=== PATIENT | male | born 1945 | race Caucasian/White ===

== ENCOUNTER 2020-06-10 09:01 | Emergency (ER) | payer MEDICARE, BC ==
--- NOTE | 2020-06-10 10:28 | EDM.PDOC ---
ED HPI GENERAL MEDICAL PROBLEM - General Chief Complaint: General Stated Complaint: KNEE SWOLLEN Time Seen by Provider: 06/10/20 09:15 Source of Information: Reports: Patient, Family (son) History Limitations: Reports: No Limitations - History of Present Illness INITIAL COMMENTS - FREE TEXT/NARRATIVE: 75-year-old male presents to the emergency room with complaints of increasing pain swelling tightness in his right lower leg and calf. He is status post right total knee arthroplasty 2 weeks postop. He has been doing well. His pain has been well controlled. He has had increasing pain swelling postoperatively and is a right leg with ecchymosis. He was seen by the orthopedic PA today for wound check and staple removal. He did not get an Doppler ultrasound. He feels his right leg is getting tighter. He has YVES hose but is not currently wearing them. He is on aspirin for DVT prophylaxis. Onset: Gradual Duration: Day(s):, Getting Worse Location: Reports: Lower Extremity, Right Quality: Reports: Ache, Pressure (right lower extremity) Severity: Moderate Improves with: Reports: None Worsens with: Reports: None Context: Reports: Other (s/p RTKA) Associated Symptoms: Denies: Diaphoresis, Fever/Chills, Shortness of Breath Right Knee Pain Score (Numeric/FACES): 4 - Related Data Allergies Allergy/AdvReac Type Severity Reaction Status Date / Time No Known Allergies Allergy Verified 06/10/20 09:25 Social & Family History - Tobacco Use Tobacco Use Status *Q: Never Tobacco User Second Hand Smoke Exposure: No - Caffeine Use Caffeine Use: Reports: Coffee - Recreational Drug Use Recreational Drug Use: No ED ROS GENERAL - Review of Systems Review Of Systems: See Below Constitutional: Reports: No Symptoms HEENT: Reports: No Symptoms Respiratory: Reports: No Symptoms Cardiovascular: Reports: No Symptoms Endocrine: Reports: No Symptoms GI/Abdominal: Reports: No Symptoms : Reports: No Symptoms Musculoskeletal: Reports: Leg Pain (right leg/swelling/ecchymosis), Joint Pain (s/p RTKA), Joint Swelling (s/p RTKA), Muscle Pain (right calf), Other (Right knee active motion is about 100 degrees of flexion.) Skin: Reports: Bruising (Right thigh, calf, foot), Wound (knee incision dry and intact. No signs of infection. Steri-Strips across the knee.). Denies: Erythema Neurological: Reports: No Symptoms ED EXAM, GENERAL - Physical Exam Exam: See Below Exam Limited By: No Limitations General Appearance: Alert, WD/WN, No Apparent Distress Throat/Mouth: Normal Voice, No Airway Compromise Head: Atraumatic Respiratory/Chest: No Respiratory Distress Peripheral Pulses: 1+: Dorsalis Pedis (R) Back Exam: Normal Inspection Extremities: Pedal Edema, Joint Swelling (right knee, status post total knee arthroplasty), Angelica's Sign, Limited Range of Motion (Active flexion 100 degrees), Other (It is in the right calf. Right knee incision is well approximated clean dry intact, Steri-Strips are overlying the incision. No signs of infection. Calf is tender swollen with associated ecchymosis in the right thigh extending into his calf and right foot.) Neurological: Alert, Oriented, No Motor/Sensory Deficits Psychiatric: Normal Affect, Normal Mood Skin Exam: Warm, Dry, Intact, Ecchymosis (Right leg), Wound/Incision (Benign, right knee) Lymphatic: No Adenopathy Course - Vital Signs Last Recorded V/S: Last Vital Signs Temp 97.4 F 06/10/20 09:05 Pulse 56 L 06/10/20 10:18 Resp 18 06/10/20 10:18 BP 148/79 H 06/10/20 10:18 Pulse Ox 96 06/10/20 10:18 - Radiology Interpretation Free Text/Narrative:: X-ray right knee Indication: Postop knee/swelling/calf pain Comparison: December 11, 2019 Discussion: Soft tissue swelling throughout the imaged distal thigh, knee and proximal leg. Interval total knee arthroplasty without evident hardware complication. Small to moderate joint fluid. Impression: Diffuse soft tissue swelling. Interval arthroplasty without evident hardware complication Departure - Departure Time of Disposition: 10:30 Disposition: DC/Tfer to Other 70 Condition: Good Clinical Impression: Right calf pain, Pain and swelling of right lower extremity History of total knee arthroplasty Qualifiers: Laterality: right Qualified Code(s): Z96.651 - Presence of right artificial knee joint - Discharge Information Instructions: How to Use Compression Stockings, Deep Vein Thrombosis, Venous Thromboembolism Prevention Referrals: Danii Ray PA-C [Primary Care Provider] - Forms: ED Department Discharge Care Plan Goals: 1. Doppler US Right lower extremity at [facility] in [place] today. 2. Continue with ASA daily per ortho protocol following TKA. 3. Your orthopedic will need to be notified following doppler US of Right leg. 4. TKA protocol per Orthopedics recommendations following findings from Doppler US right leg. Sepsis Event Note (ED) - Evaluation Sepsis Screening Result: No Definite Risk - Focused Exam Vital Signs: Vital Signs Temp Pulse Resp BP Pulse Ox 06/10/20 10:18 56 L 18 148/79 H 96 06/10/20 09:05 97.4 F 59 L 18 149/79 H 95 - Assessment/Plan Assessment:: Right leg/calf swelling/pain s/p Right total knee arthroplasty Plan: 1. Doppler US Right lower extremity at [facility] in [place] today. 2. Continue with ASA daily per ortho protocol following TKA. 3. Your orthopedic will need to be notified following doppler US of Right leg. 4. TKA protocol per Orthopedics recommendations following findings from Doppler US right leg.
--- NOTE | 2020-06-10 10:31 | CR ---
[id number] RAD/RAD Knee Right 1-2V EXAM: RAD Knee Right 1-2V INDICATION: POSTOP KNEE/SWELLING/CALF PAIN. COMPARISON: December 11, 2019. DISCUSSION: Soft tissue swelling throughout the imaged distal thigh, knee and proximal leg. Interval total knee arthroplasty without evident hardware complication. Small to moderate joint fluid. IMPRESSION: 1. Diffuse soft tissue swelling. 2. Interval arthroplasty without evident hardware complication. Bonifacio iRchmond MD 06/10/20 1030 Thank you for allowing us to participate in the care of your patient.
--- OUTSIDE RECORDS SUMMARY | 2020-07-13 11:15 | XMSREPORT ---
:1945 Author Organization [facility] s Address [address] [place] [address] [address] [place] [address] Care Team Providers Name Role Phone Clinic, [facility] Primary Care Provider [phone] Norris Mendoza MD Attributed Provider Reason for Visit Auth/Cert (Routine) Status Reason Specialty Diagnoses / Referred By Referred To Procedures Contact Contact Continuity of Care Diagnoses Unilateral primary osteoarthritis, right knee Philipp Andrade Procedures ARTHROPLASTY KNEE CONDYLE & PLATEAU MEDIAL & LAT COMPARTMENTS WWO MARKO Pisano MD [address] [place] [id number] Encounter Details Date Type Department Care Team Description 05/31/2020 - Hospital Encounter [facility] Lupe Philipp Arthr itis of knee, 06/01/2020 [place] NIR Pisano MD right [address] [address] [place] [address] [phone] Allergies No Known Allergiesdocumented as of this encounter (statuses as of 06/01/2020) Medications Medication Sig Dispensed Refills Start Date End Date Status brimonidine-timol Place 1 drop 0 Active ol (COMBIGAN) into both eyes 0.2-0.5 % 1 time per day ophthalmic solution latanoprost Place 1 drop 0 Activ e (XALATAN) 0.005 % into both eyes ophthalmic every night at solution bedtime aspirin 325 MG Take 1 tablet 28 tablet 0 06/01/2020 Active enteric coated (325 mg) by 1 tabletIndications mouth 2 times : Status post a day for 14 total right knee days replacement HYDROcodone-aceta Take 1 to 2 40 tablet 0 06/01/2020 Active minophen (NORCO) tablets by 5-325 mg mouth every 4 tabletIndications to 6 hours as : Status post needed for total right knee moderate pain replacement oxyCODONE Take 1 to 2 30 tablet 0 06/01/2020 Active (OXY-IR) 5 mg tablets (5-10 tablet (immediate mg) by mouth release)Indicatio Every 4 hours ns: Status post as needed for total right knee severe pain replacement aspirin 81 mg Take 1 tablet 30 tablet 11 02/16/2016 D iscontinued enteric coated (81 mg total) 1 ( Stop Taking at tabletIndications by mouth 1 D ischarge) : Bradycardia, time per day S/P MVR (mitral valve repair) diclofenac sodium Take 1 tablet 0 05/06/2020 02 Discontinued (VOLTAREN) 75 mg by mouth 2 1 (S top Taking at delayed-release times a day Idania jackson) (enteric coated) tablet LATANOPROST-TIMOL Apply 1 drop 0 Discontinued OL MALEATE OPTH to the 1 (Igor a entry affected error) eye(s) 1 time per day Tadalafil (CIALIS Take by mouth 0 05/31/19 2 Discontinued PO) 2.5 mg take 1 (Data en try one daily error) documented as of this encounter (statuses as of 06/01/2020) Active Problems Problem Noted Date Primary open angle glaucoma of both eyes 02/13/2017 Encounter for [employer] (FAA) ex amination 02/13/2017 Bursitis 06/05/2016 S/P MVR (mitral valve repair) 02/16/2016 Bradycardia 02/16/2016 S/P mitral valve repair 11/09/2013 Elevated LFTs 11/09/2013 Hypercholesteremia 11/09/2013 Pre-operative general physical examination 11/09/2013 documented as of this encounter (statuses as of 06/01/2020) Immunizations Name Administration Dates Next Due TD,not adsorbed 11/09/2006 documented as of this encounter Social History Tobacco Use Types Packs/Day Years Used Date Former Smoker Cigarettes Quit: 05/20/18 71 Smokeless Tobacco: Never Used Alcohol Use Drinks/Week oz/Week Comments Yes 24 Cans of beer 24.0 1 case of beer a week Sex Assigned at Date Recorded Not on file documented as of this encounter Last Filed Vital Signs Vital Sign Reading Time Taken Comments Blood Pressure 143/84 06/01/2020 7:11 AM RAG PRODUCTION WORKER Pulse 53 06/01/2020 7:11 AM RAG PRODUCTION WORKER Temperature 36.6 C (97.9 F) 06/01/2020 7:11 AM RAG PRODUCTION WORKER Respiratory Rate 16 06/01/2020 7:11 AM RAG PRODUCTION WORKER Oxygen Saturation 95% 06/01/2020 7:11 AM RA RAG PRODUCTION WORKER Inhaled Oxygen Concentration - - Weight 104.2 kg (229 lb 11.5 oz) 05/31/2020 6:04 AM RAG PRODUCTION WORKER Height 170.2 cm (5' 7") 05/31/2020 6:04 AM RAG PRODUCTION WORKER Body Mass Index 35.98 05/31/2020 6:04 AM RAG PRODUCTION WORKER documented in this encounter Functional Status Functional Status Response Date of Assessment Do you have difficulty with walking, balance, climbing No 02/16/2016 stairs, or had a fall in the last 3 months? documented as of this encounter Discharge Summaries Not on filedocumented in this encounter Discharge Instructions Yordan Neff RN - 1Reviewed "Orthopedic Discharge Education Guidelines" and "Pain management after You are Discharged" documents with patient. Paper copies were attached to AVS for patient to use as a reference for follow up questions. Preventing Blood Clots (Deep Vein Thrombosis) In the days and weeks after surgery, you have a higher chance of developing a deep vein thrombosis (DVT). This is a condition in which a blood clot or thrombus develops in a deep vein. They are most common in the leg. But, a DVT may develop in an arm, or another deep vein in the body. A piece of the clot, called an embolus, can separate from the vein and travel to the lungs. A blood clot in the lungsis called a pulmonary embolus (PE). This can cut off the flow of blood. It is a medical emergency and may cause . Deep vein thrombosis can occur even after you go home. Follow all instructions from your health careprovider. The following are some general guidelines about DVT prevention: Anticoagulant medication. If an anticoagulant was prescribed, make sure you follow all directionsabout taking it. Be sure you know what foods and medicines may interact. Also, ask your health care provider what to do if you forget to take a dose. Returning to activity. Follow all instructions about returning to activities. Be as active as youcan. This improves blood flow and helps prevent a clot from forming. When in bed or in a chair, continue with the ankle exercises you did in the hospital. Elevate your extremity above the level of yourheart to help prevent swelling. documented in this encounter Medications at Time of Discharge Medication Sig Dispensed Refills Start Date End Date aspirin 325 MG enteric Take 1 tablet (325 28 tablet 0 06/0106/15/2020 coated mg) by mouth 2 times tabletIndications: a day for 14 days Status post total right knee replacement HYDROcodone-acetaminophe Take 1 to 2 tablets 40 tablet 0 n (NORCO) 5-325 mg by mouth every 4 to 6 tabletIndications: hours as needed for Status post total right moderate pain knee replacement oxyCODONE (OXY-IR) 5 mg Take 1 to 2 tablets 30 tablet 0 tablet (immediate (5-10 mg) by mouth release)Indications: Every 4 hours as Status post total right needed for severe knee replacement pain latanoprost (XALATAN) Place 1 drop into 0 0.005 % ophthalmic both eyes every night solution at bedtime brimonidine-timolol Place 1 drop into 0 (COMBIGAN) 0.2-0.5 % both eyes 1 time per ophthalmic solution day documented as of this encounter Progress Notes Chloe Hussein PA - 06/01/2020 11:11 AM CST ORTHO progress note. Karime Jiang is a 75yr old male admitted on 05/31/2020 5:03 AM 1 Day Post-Op, patient of Philipp Andrade MD Status Post: Procedure(s): RIGHT TOTAL KNEE REPLACEMENT Secondary diagnoses: Patient Active Problem List Diagnosis S/P mitral valve repair Elevated LFTs Hypercholesteremia Pre-operative general physical examination S/P MVR (mitral valve repair) Bradycardia Bursitis Primary open angle glaucoma of both eyes Encounter for [employer] (FAA) examination Stevo is doing well this morning, denies pain at this time. He denies nausea today. Lab Results Component Value Date HEMOGLOBIN 13.7 06/01/2020 Current Vitals: BP 143/84 | Pulse 53 | Temp 97.9 F (36.6 C) | Resp 16 | Ht 1.702 m (5' 7") | Wt 104.2 kg (229 lb 11.5 oz) | SpO2 95% | BMI 35.98 kg/m Dist NVI. Dressing change prior to DC. Plan: Continue cares, PT. OK to DC home today. Chloe Hussein PA-C Philipp Combs MD - 05/31/2020 6:42 AM CSTH&P Updates and Indication for Care/Procedure: I have examined the patient, reviewed the H&P and no changes to the patient's condition. I have explained the risks, including risk of COVID-19 exposure, benefits, indications, and alternatives for the procedure, answered questions and obtained the appropriate consent to proceed. Stacia Lemus [facility] - 05/31/2020 6:28 AM CST 05/31/2020 6:29 AM RAG PRODUCTION WORKER Patient was seen by pharmacy for medication reconciliation. Home medications have been reconciled and updated on the home medications list to match the patient's home usage. Medications Deleted: latanoprost-timolol opthal drops-has plain latanoprost, Cialis (not using) Medications Added: latanoprost opthal drops Other information: patient's own eye drops (Combigan and latanoprost) brought to pharmacy for relabel for use in-house. Prior to Admission Medications Prescriptions Last Dose Informant Patient Reported? Taking? aspirin 81 mg enteric coated tablet 1 month ago Self No Yes Sig: Take 1 tablet (81 mg total) by mouth 1 time per day brimonidine-timolol (COMBIGAN) 0.2-0.5 % ophthalmic solution 05/31/2020 at 0400 Self Yes Yes Sig: Place 1 drop into both eyes 1 time per day diclofenac sodium (VOLTAREN) 75 mg delayed-release (enteric coated) tablet 05/28/2020 Self Yes Yes Sig: Take 1 tablet by mouth 2 times a day latanoprost (XALATAN) 0.005 % ophthalmic solution 05/30/2020 at hs Self Yes Yes Sig: Place 1 drop into both eyes every night at bedtime Facility-Administered Medications: None Stacia Ochoa RPh PRODUCTION WORKER documented in this encounter Procedure Notes Emma Clark MD - 05/31/2020 6:54 AM CSTAssociated Order(s): NERVE BLOCK Procedure Documentation BERENICE: [id number] PATIENT NAME: Karime Jiang NERVE BLOCK Date/Time: 05/31/2020 6:54 AM Performed by: Emma Clark MD Authorized by: Emma Clark MD Comments: NERVE BLOCK Date Performed: 05/31/2020 Performed by: Emma Clark Start Time: 643 End Time: 651 Procedure: Adductor Canal Block Type: Single Shot Laterality: Right Indication: Post-Op Pain Relief per surgeon request Risks and Benefits: Discussed the risks (including but not limited to, bleeding, infection, nerve damage, and intravascular injections) benefits and alternatives to the procedure Consent: Expressed understanding of the procedure, risks, benefits and alternatives and wished to proceed. Anesthesia Time Out: There was a time out called immediately prior to the procedure to confirm the correct patient, procedure and laterality. All necessary equipment was available and functioning. Monitoring: Continuous monitory of ECG, Pulse Ox, Heart Rate and Blood Pressure throughout procedure,. Positioning: Supine Sedation and Analgesia: 1 mg Versed and 50 mcg Fentanyl Pannus Retraction: Not Needed Draping: Draping not needed Disinfectant Used: Skin was sterily prepped with Chlorhexadine and allowed to dry. Skin Infiltration: Lidocaine 2% Equipment used Ultrasound Regional Needle: Stimuplex Needle Gauge: 22g Needle Length: 3 1/8" Technique: Anatomical Landmarks identified, Tissues were visualized with ultrasound, Local given in5ml increments with negative aspiration in-between. and Strict sterile technique was maintained throughout. Motor Response: none Lowest Stimulator Current: none mA Catheter: None Dressing: No Dressing Events: None Vital Signs: Please refer to Pre-Procedure Record Comments: Ultrasound Image recorded and Patient tolerated procedure well Medications: Base Medication: Ropivicaine 0.5% 27 ml Additives: none documented in this encounter Miscellaneous Notes Clinical Team - Elisabeth Benton RN - 06/01/2020 12:38 PM CSTExplain AVS instructions,orthopedic discharge education guideline form, safety, precautions, pain management, s/s to notify provider of, and much more. At this time, all other questions reviewed. Pt discharged to home accompanied by friend, [facility] with all belongings. ccupational Therapy - Karime Marks OTR/Mark - 06/01/2020 9:54 AM CST Occupational Therapy Orthopedic Evaluation Date: 06/01/19 Start Time: 929 Total for time-based codes: 23 minutes Total treatment time: 23 minutes Admitting Diagnosis: R TKA PMH: Past Medical History: Diagnosis Date Ankle fracture, left Bradycardia Bursitis Elevated LFTs Erectile dysfunction Fatigue Glaucoma History of mitral valve repair Hyperlipidemia Left ankle pain Pes anserine bursitis Pes anserinus tendonitis Right knee pain Upper respiratory infection Urinary frequency Vitamin D deficiency Precautions: TKA Weight bearing status: WBAT SOCIAL/HOME ENVIRONMENT House: house Lives Alone: No, spouse Bed/Bath on Main Floor: No: Number of stairs: 14-15 Bath Setup: Walk-In Shower with door Prior Level of Functioning: Independent Adaptive Equipment Available: shower chair, health psychologist and front-wheeled walker ADLs Dressing: Pt was able to kristine pants w/ SBA, education provided on LE dressing technique (surgical leg in first/out last) and pt able to utilize. Pt declines education on donning/doffing socks as he reports will be able to assist. Homemaking: Kitchen safety reviewed and patient verbalizes understanding. Home safety reviewed and patient verbalizes understanding. TRANSFERS Chair: standby assistance with walker Toilet: standby assistance with walker, standard toilet w/ grab bars to simulate home setup. Car: standby assistance with walker. Simulated higher vehicle as pt reports a friend is picking him up in a pickup with a running board. Tub/Shower: standby assistance with walker and shower chair. Total Knee precautions were reviewed with the patient. Patient demonstrates understanding of precautions. UE FUNCTION: WFL COGNITION: Alert and oriented to self Pain Level at Rest: 0/10 Pain Level with Activity: 2/10 PATIENT/FAMILY EDUCATION: TKA precautions Transfers Self Half-Way safety Kitchen safety Role of OT Family present during evaluation: none Adaptive Equipment Recommended: No adaptive equipment needed Plan to obtain adaptive equipment: Patient indicates all needed adaptive equipment obtained prior to hospitalization. Assessment: Patient at SBA/Independent level for ADLs/transfers. No further skilled OT needed. Plan: Discharge OT/No OT services needed at this time. Goals by discharge: Patient will be SBA with bed, chair, toilet, car transfers with adaptive equipment as needed. Patient will be SBA with tub/shower transfer with adaptive equipment as needed. Patient will be SBA with self care skills with adaptive equipment as needed. Patient will be SBA for kitchen/home safety. (all goals met during initial session) Certification dates: 06/01/2020 Occupational Therapy Orthopedic Progress Note Treatment Today's Treatment Evaluation Self care/home management: 20 minutes Treatment provided: Pt completing transfers/ADLs as noted above. Pt educated on TKA precautions, modified ADLs, home/kitchen safety, and AE as needed. Pt moving well and has assistance at home from spouse if needed. From an OT standpoint, pt will be safe to discharge home w/ spouse assistance as needed. Gait belt donned for all OOB activity and pt left sitting in chair with call light and tray table within reach. Evaluation Complexity PMH/Comorbidities that affect Occupational Performance: see PMH above Occupational Profile/Medical and Therapy History: LOW - Brief history relating to presenting problem Patient Assessment: LOW - 1-3 performance deficits relating to physical, cognitive, psychosocial limitations/restrictions Clinical Decision Making: LOW - Low complexity, limited amount of treatment options, no assessment modification, no comorbidities Evaluation Complexity: Low Therapist pager #: [phone] I certify the need for these services furnished under this plan of treatment while under my care. are Planning - Elisabeth Benton RN - 06/01/2020 9:47 AM RAG PRODUCTION WORKER Problem: ACUTE PAIN Goal: CLIENT SATISFACTION: PAIN MANAGEMENT Description: DEFINITION: Extent of positive perception of nursing care to relieve pain. 1=Not at all satisfied, 2=Somewhat satisfied, 3=Moderately satisfied, 4=Very satisfied, 5=Completely satisfied. Outcome: Outcome acceptable for discharge Flowsheets (Taken 06/01/2020941) Plan of care reviewed with: Patient Patient specific goal for the day: Pt will have tolerable pain level at 5/10 or less on a scale of 0-10 scale. Patient specific goal for the stay: Maintain a tolerable pain level at or below 5/10 on 0-10 scale w/ oral pain meds Achieve goal for stay: By discharge Patient Progress: Pt rated pain 3-4/10 during shift using FWW, up with 1. Passed therapy discharge goals. Goal: CLIENT SATISFACTION: PAIN MANAGEMENT Description: DEFINITION: Extent of positive perception of nursing care to relieve pain. 1=Not at all satisfied, 2=Somewhat satisfied, 3=Moderately satisfied, 4=Very satisfied, 5=Completely satisfied. Outcome: Outcome acceptable for discharge Flowsheets (Taken 06/01/2020941) Plan of care reviewed with: Patient Patient specific goal for the day: Pt will have tolerable pain level at 5/10 or less on a scale of 0-10 scale. Patient specific goal for the stay: Maintain a tolerable pain level at or below 5/10 on 0-10 scale w/ oral pain meds Achieve goal for stay: By discharge Patient Progress: Pt rated pain 3-4/10 during shift using FWW, up with 1. Passed therapy discharge goals. Problem: IMPAIRED GAS EXCHANGE Goal: RESPIRATORY STATUS Description: DEFINITION: Movement of air in and out of the lungs and exchange of carbon dioxide and oxygen at the alveolar level. 1=Severe deviation from normal range, 2=Substantial deviation from normal range, 3=Moderate deviation from normal range, 4=Mild deviation from normal range, 5=No deviationfrom normal range. Outcome: Outcome acceptable for discharge Flowsheets (Taken 06/01/2020941) Patient specific goal for the day: to maintain O2 sat greater than 90% with the use of oxygen as needed Patient specific goal for the stay: To be weaned off on oxygen, go home on RA and free from pneumonia Achieve goal for stay: By discharge Patient Progress: Pt is on RA, VS WNL. Lung sounds clear bilaterlly. No SOB noted. Problem: IMPAIRED PHYSICAL MOBILITY Goal: MOBILITY Description: DEFINITION: Ability to move purposefully in own environment independently with or without assistive device. 1=Severely compromised / Total assistance: Performs less than 25% of activity; 2=Substantially compromised / Maximal assistance: Performs 25-49% of activity; 3=Moderately compromised / Moderate assistance: Performs 50-74% of activity; 4=Mildly compromised / Modified independence: Needs assistive device, supervision, minimal contact,or safety is a concern; 5=Not compromised / Complete independence. Outcome: Outcome acceptable for discharge Flowsheets (Taken 06/01/2020 0942) Patient specific goal for the day: Pt will work with PT/OT throuhgout the shift. Patient specific goal for the stay: Meet criteria for safe discharge Achieve goal for stay: By discharge Patient Progress: Pt passed PT/OT and meet criteria for discharge. ase Stephenie - Nette Otero LSW - 06/01/2020 9:33 AM CSTCASE MANAGEMENT / SOCIAL SERVICE FINAL TRANSITION PLAN TRANSITION DATE: 06/01/2020 TRANSITION TIME: Once cleared by therapies and medically able INTENDED PAYER SOURCE FOR AGENCY: Medicare TRANSITION DESTINATION: Home with family support and OPPT at [place], [place] DOES ACCEPTING FACILITY REQUIRE COVID TESTING BEFORE DISCHARGE: N/A TRANSITION TRANSPORTATION: Family Car TRANSPORTATION PAYMENT: Not applicable TRANSITION CHOICES OFFERED: Home Health: Home Safety Evaluation, Occupational Therapy and Physical Therapy Home: Family/Friend Support Outpatient Therapy: Occupational Therapy and Physical Therapy Swing Bed Transitional Care All discharge options were discussed. DOES THE PATIENT HAVE A PRIMARY CARE PHYSICIAN? Yes [facility], RESOURCE PATIENT / SUBSTITUTE DECISION MAKER GOAL UPON TRANSITION: First Choice: Home: Family/Friend Support Outpatient Therapy: Physical Therapy PATIENT CHOICE EDUCATION: Not applicable MEDICARE 3 IP MIDNIGHT CRITERIA MET: N/A RESOURCE(S) PROVIDED: nothing needed at this time DOES PATIENT HAVE CLOTHING TO WEAR AT DISCHARGE? Yes ANTICIPATED MODE OF TRANSPORT TO AND FROM FOLLOW UP APPOINTMENTS: Family Car VERIFIED CORRECT PHARMACY IS ENTERED FOR DISCHARGE: Patient agreeable with Med to Bed METHOD OF PRESCRIBING MEDICATIONS: Medications to be E-prescribed to above pharmacy TRANSITION ROUNDING COMPLETED WITH THE FOLLOWING: Patient / family Painter Touch Up plaster helper Discussed in person COMMENTS / PATIENT AND FAMILY RESPONSE TO PLAN: Chart review was completed. Airline Reservation Agent met with patient at bedside; introduced self, case management role and discharge planning. Patient expressed that he anticipates discharge on this date and that he is comfortable returning home with family support. Patient explained that he plans to participate in outpatient therapy at [facility] in [place], [place]. Patient expressed that his will be his main source of assistance and transportation upon discharge. Airline Reservation Agent was told that she did not need to contact family at this time. Patient did not have any other questions or concerns at this time. Airline Reservation Agent will continue to follow to ensure a safe discharge plan and assess any needs that may arise. SPECIAL TRANSITION DAY INSTRUCTIONS TO NURSE / MD: CURRENT READMISSION RISK SCORE / HANDOFF: Predictive Risk Score Risk of Unplanned Readmission: 5 Handoff given: N/A SIGNED: CANDIDO Sethi Case Management P: [phone] F: [phone] signed by Nette Otero LSW at 06/01/2020 10:04 AM CSTPhysical Therapy - Prasad Díaz, PT - 06/01/2020 9:32 AM RAG PRODUCTION WORKER Physical Therapy Orthopedic TKA Discharge Note Date: 06/01/2020 Subjective: Alert and Oriented. Patient ready to discharge home with his . Objective: Gait belt donned for all out of bed activities. Lab Results Component Value Date HEMOGLOBIN 13.7 06/01/2020 Supine to/from sit: Independent Sit to/from stand: Independent from bed and recliner. Sitting Balance: Good Standing Balance: Good with FWW Gait: Ambulates 350 ft with FWW and stand by assist to independent with slow, steady, emerging reciprocating gait pattern. Stairs: Able to ascend/descend 5 steps with FWW/rail and contact assist with step to pattern. ROM: AAROM right knee - 4 - 104 degrees. Patient encouraged not to be overly aggressive with ROM and run risk of opening incision site. Exercises: Completes 10 reps of exercise on surgical LE which includes quad sets and hamstring sets with good quality strength, and supine heel slides, SAQ, and SLR with sheet to no assistance along with seated LAQ, and knee extension and flexion stretching. Pain: (0-10 scale) At rest: 2 With Activity: 2 Education: Completed for precautions, use of equipment, home exercise activity and mobility progression. Patient verbalizes understanding of precautions. Written home exercise program provided. Patient and family verbalizes understanding of home exercise program. Equipment: Patient indicates all needed assistive devices obtained prior to hospitalization or will obtain on their own. Assessment: Patient demonstrates safety with mobility, applying precautions as indicated. Goals: All goals achieved as identified in initial evaluation. Plan: Patient will be discharged to home with spouse. Follow-up Physical Therapy Services: [facility] PT Time Treatment Occurred: 850 Gait trainin minutes Therapeutic Exercise: 25 minutes Therapeutic Activity: 0 minutes TOTAL TIMED CODES: 40 minutes TREATMENT TOTAL TIME: 40 minutes are Planning - Merlyn Johnson RN - 06/01/2020 6:53 AM RAG PRODUCTION WORKER Problem: ACUTE PAIN Goal: CLIENT SATISFACTION: PAIN MANAGEMENT Description: DEFINITION: Extent of positive perception of nursing care to relieve pain. 1=Not at all satisfied, 2=Somewhat satisfied, 3=Moderately satisfied, 4=Very satisfied, 5=Completely satisfied. Flowsheets (Taken 06/01/2020 0652) Patient specific goal for the day: Pt will have tolerable pain level at 5/10 or less on a scale of 0-10 scale. Patient Progress: Shift: 2300-present Patients pain rating throughout shift: 2/10. Pain has been controlled with scheduled pain medication no PRN pain medication was given. Ice packs changed frequently. VSS, afebrile. Right knee dressing intact; serosanguinous stain marked with pen; has not expanded. CMS intact. linical Team - Shara Pagan RN - 05/31/2020 8:00 PM CSTPt is AOx4. VSS and on RA with O2 >90%. Pt denies any SOB or Nausea. Pain is controlled with sched ule pain medications (see MAR). Ice is applied the R) knee. Pt is voiding (see I&O). Pt is tolerating a regular diet well. Pt is up with 1 assist, gait belt and FWW. Will continue to monitor and assess. are Planning - Shara Pagan RN - 05/31/2020 6:20 PM RAG PRODUCTION WORKER Problem: ACUTE PAIN Goal: CLIENT SATISFACTION: PAIN MANAGEMENT Description: DEFINITION: Extent of positive perception of nursing care to relieve pain. 1=Not at all satisfied, 2=Somewhat satisfied, 3=Moderately satisfied, 4=Very satisfied, 5=Completely satisfied. Outcome: NOC Rating 3 Flowsheets (Taken 05/31/20201811) Initial Score: 3 Target Score: 4 Plan of care reviewed with: Patient Patient specific goal for the day: Pt will have tolerable pain level at 5/10 or less on a scale of 0-10 scale. Achieve goal for stay: By discharge Patient Progress: Pt has c/o minimal pain throughout the shift. Pt given schedule pain medications. Ice is applied to the R) knee and positioned for comfort. Dressing has scant drainage noted. Pt is satisfied with pain control. Pt was instructed to let staff know when pain increases or is not tolerable. Problem: IMPAIRED PHYSICAL MOBILITY Goal: MOBILITY Description: DEFINITION: Ability to move purposefully in own environment independently with or without assistive device. 1=Severely compromised / Total assistance: Performs less than 25% of activity; 2=Substantially compromised / Maximal assistance: Performs 25-49% of activity; 3=Moderately compromised / Moderate assistance: Performs 50-74% of activity; 4=Mildly compromised / Modified independence: Needs assistive device, supervision, minimal contact,or safety is a concern; 5=Not compromised / Complete independence. Outcome: NOC Rating 3 Flowsheets (Taken 05/31/20201811) Initial Score: 2 Target Score: 4 Plan of care reviewed with: Patient Patient specific goal for the day: Pt will ambulate with staff throuhgout the shift. Achieve goal for stay: By discharge Patient Progress: Pt is up with 1 assist, gait belt and FWW. Pt denies any new numbness or tingling to all extremities. Movement is tolerated well. Pt will have PT/OT tomorrow in order to work toward d/c home. PRODUCTION WORKER Clinical Team - Shara Pagan RN - 05/31/2020 4:00 PM CSTPt is AOx4. VSS and on RA with a O2 >90%. Pt denies any SOB or Nausea. Pain is controled with PRNand schedule PO pain medications (see MAR). Ice is applied to the R) knee. Pt is voiding (see I&O) and has fluids at 75 mL/hr. Pt is tolerating diet well. Pt is up with 1 assist, gait belt and FWW. Will continue to monitor and assess. ase Mgmt - BrandenNette DINORA UribeW - 05/31/2020 3:09 PM CSTCASE MANAGEMENT / SOCIAL SERVICE TRANSITION PLAN - INITIAL ASSESSMENT TRANSITION PLAN: Home with family support and OPPT at [facility] in [place], [place] Awaiting Patient/Family Decision Regarding Plan of Care Transition Options Being Explored Will Continue to Follow for Support and Progression Towards Final Transition Plan BARRIERS TO TRANSITION: Awaiting Therapy Recommendations Discharge Needs to be Determined Medical barriers:surgery today and post op cares COMMENTS / PATIENT AND FAMILY RESPONSE TO PLAN: Chart review was completed. Airline Reservation Agent met with patient at bedside; introduced self, case management role and discharge planning. Patient explained that he lives at home with his in [place], [place]. 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 Patient expressed that his is also independent, able to drive and retired. Airline Reservation Agent discussed all discharge options per recommendations, possible insurance coverage and other criteria. Patient was understandable to this. Patient expressed that he is planning on discharging home with family support and outpatient therapy at [facility] in [place], [place]. Airline Reservation Agent was told that she did not need to contact family at this time. Patient explained that his will be his main source of assistance and transportation upon discharge. Patient did not have any other questions or concerns at this time. Airline Reservation Agent will continue to follow to ensure a safe discharge plan and assess any needs that may arise. ADMISSION DX: Arthritis of knee, right [M17.11] PATIENT STATUS: Ambulatory Surgery RELEASE OF INFORMATION: Yes -- verbal for: discharge planning SOURCES OF INFORMATION (See demographics for contact information): Medical Doctor Medical Record Nurse: Bedside Patient CURRENT LIVING SITUATION / LEVEL OF ASSISTANCE: Lives with spouse Home is not handicap accessible: 2 stairs Independent Bath / bedroom on main floor COMMUNITY SERVICES: None HEALTHCARE DIRECTIVE: No POWER OF INTERNET MANAGER: None FINANCIAL CONCERNS: No Concerns PRIMARY CARE PHYSICIAN: Yes : No IS PATIENT'S ADMISSION ASSOCIATED WITH TIA, ISCHEMIC, OR HEMORRHAGIC STROKE?: No LANGUAGE / COMMUNICATION BARRIERS: No PATIENT / SUBSTITUTE DECISION MAKER GOAL UPON TRANSITION: First Choice: Home: Family/Friend Support Outpatient Therapy: Physical Therapy ANTICIPATED NEEDS, TRANSITION CHOICES OFFERED: Home Health: Home Safety Evaluation, Occupational Therapy and Physical Therapy Home: Family/Friend Support Outpatient Therapy: Occupational Therapy and Physical Therapy Swing Bed Transitional Care All discharge options were discussed. RESOURCE(S) PROVIDED: nothing needed at this time DOES PATIENT HAVE CLOTHING TO WEAR AT DISCHARGE? Yes ANTICIPATED MODE OF TRANSPORT UPON DISCHARGE: Family Car VERIFIED CORRECT PHARMACY IS ENTERED FOR DISCHARGE: Patient agreeable with Med to Bed CURRENT READMISSION RISK SCORE Predictive Risk Score Risk of Unplanned Readmission: 5.2 Please refer to readmission risk assessment flowsheet for further details. SIGNED: CANDIDO Sethi Case Management P: [phone] F: [phone] signed by Nette Otero LSW at 05/31/2020 3:11 PM CSTPhysical Therapy - Prasad Díaz, PT - 05/31/2020 3:09 PM RAG PRODUCTION WORKER Physical Therapy OrthopedicTKA Evaluation Date: 05/31/2020 Assessment/Recommendations: Patient tolerates PT evaluation, exercise and walking well. Patient requires assist x 1 with bed mobility/transfers and ambulates 200 feet with FWW and contact assist x 1. Look to discharge home tomorrow with his if medically stable and therapy goals met. OPPT at [facility]. Referring Physician: Philipp Andrade MD Diagnosis/Surgical Procedure and Date: Right total knee arthroplasty Significant PMH: Past Medical History: Diagnosis Date Ankle fracture, left Bradycardia Bursitis Elevated LFTs Erectile dysfunction Fatigue Glaucoma History of mitral valve repair Hyperlipidemia Left ankle pain Pes anserine bursitis Pes anserinus tendonitis Right knee pain Upper respiratory infection Urinary frequency Vitamin D deficiency Physician Orders: Evaluate and treat: yes Gait and exercise: yes Weight Bearing Status: As tolerated. Precautions: total knee arthroplasty Lab Results Component Value Date HEMOGLOBIN 15.7 05/31/2020 No kneeling/twisting on surgical knee/leg Status Prior to Hospitalization/Surgical Procedure: Current Living Environment: Lives in [place] 4 story home with spouse. Stairs to Enter Home: 2 Railin Stairs to Bedroom or Bathroom: - Railing: - Ambulation Status: Independent Equipment Owned: FWW Patient/Family Concerns: None Patient Goals: Go home with spouse. Other: Patient is a [employer]. Current Status: Cognition: Alert and Oriented Observation: Gait belt donned for all out of bed activities. ROM: AAROM right knee - 5 - 95 degrees Transfers: Supine to/from Sit: Goes supine to sit with minimal assist. Sit to/from Stand: Goes sit to stand from raised bed with contact assist. Balance: Sitting: Good Standing: Fair with FWW and contact assist. Gait: Ambulates 200 feet with FWW and contact assist x 1 with slow, steady, semi-reciprocating gaitpattern and recliner follow. At completion of treatment, patient to sit up in recliner and cold pack applied to right knee. Stairs: N/t Exercises: Completes 10 reps of exercise on surgical LE which includes quad sets and hamstring sets with fair quality strength, and supine heel slides, SAQ, and SLR with minimal assistance. Pain Level: (0-10 scale) At rest: 2 With Activity: 2 Comments: Patient/Family Education: Reviewed precautions, role of the physical therapist, and discussed anticipated outcome goals. Other: Family Present during Evaluation: Treatment: Time Treatment Occurred: 1434 Evaluation: X Gait: 0 minutes Therapeutic Exercise: 20 minutes Therapeutic Activity: 0 minutes TOTAL TIMED CODES: 20 minutes TREATMENT TOTAL TIME: 35 minutes Assessment: Patient presents with impaired functional mobility post surgical procedure and will benefit with continued PT. Patient has potential to return home within 1 - 2 days. Plan: Follow daily for gait training, therapeutic exercise, therapeutic activity, and education. Goals: By hospital discharge or within 1 - 2 days/hospital discharge. Patient/family involved in developing/progressing goals and treatment plan. Supine to sit with no assist. Sit to stand with no assist. Ambulate 250 feet on level surfaces with no assist and appropriate assistive device. Up/Down 2 steps with contact assist and appropriate assistive device. Follow precautions during functional mobility. Discharge knee ROM of 10 to 80 degrees. Independent or able to instruct caregiver in home exercise program. Appropriate assistive device available for ambulation. Certification dates: 05/31/2020 to: 06/07/2020 CERTIFICATION I certify that the services as described in the above note are furnished while the patient is under my care; a plan for furnishing these services has been established and will be periodically reviewed;the services are required for the patient; and the services are subject to established guidelines. Referring Provider: Dr Nelsen are Planning - Elisabeth Benton RN - 05/31/2020 10:29 AM RAG PRODUCTION WORKER Problem: ACUTE PAIN Goal: CLIENT SATISFACTION: PAIN MANAGEMENT Description: DEFINITION: Extent of positive perception of nursing care to relieve pain. 1=Not at all satisfied, 2=Somewhat satisfied, 3=Moderately satisfied, 4=Very satisfied, 5=Completely satisfied. Outcome: NOC Rating 2 Flowsheets (Taken 05/31/2020 1026) Initial Score: 2 Target Score: 4 Plan of care reviewed with: Patient Patient specific goal for the day: Maintain a tolerable pain level at or below 5/10 on 0-10 scale. Patient specific goal for the stay: Maintain a tolerable pain level at or below 5/10 on 0-10 scale w/ oral pain meds Achieve goal for stay: By discharge Patient Progress: Pt just arrived from PACU s/p, denied pain at this moment d/t spinal block still in effect. Pain medication available as needed, see MAR. Ice applied to Rt knee and positioned for comfort. Incision to Rt knee dressed, sabrina. Dressing CDI. Pt voiced satisfied with pain management. Pt was instructed to inform nursing staff if further pain management needed xiao. Problem: IMPAIRED GAS EXCHANGE Goal: RESPIRATORY STATUS Description: DEFINITION: Movement of air in and out of the lungs and exchange of carbon dioxide and oxygen at the alveolar level. 1=Severe deviation from normal range, 2=Substantial deviation from normal range, 3=Moderate deviation from normal range, 4=Mild deviation from normal range, 5=No deviationfrom normal range. Outcome: NOC Rating 3 Flowsheets (Taken 05/31/2020 1026) Initial Score: 3 Target Score: 4 Plan of care reviewed with: Patient Patient specific goal for the day: to maintain O2 sat greater than 90% with the use of oxygen as needed Patient specific goal for the stay: To be weaned off on oxygen, go home on RA and free from pneumonia Achieve goal for stay: By discharge Patient Progress: Currently required the use of 2 L of Oxygen NC to keep O2 sat above 90%. Turn cough, deep breath. No SOB noted. Hourly CARE roundings. Will continue to monitor. Problem: IMPAIRED PHYSICAL MOBILITY Goal: MOBILITY Description: DEFINITION: Ability to move purposefully in own environment independently with or without assistive device. 1=Severely compromised / Total assistance: Performs less than 25% of activity; 2=Substantially compromised / Maximal assistance: Performs 25-49% of activity; 3=Moderately compromised / Moderate assistance: Performs 50-74% of activity; 4=Mildly compromised / Modified independence: Needs assistive device, supervision, minimal contact,or safety is a concern; 5=Not compromised / Complete independence. Outcome: NOC Rating 2 Flowsheets (Taken 05/31/2020 1029) Initial Score: 2 Target Score: 4 Plan of care reviewed with: Patient Patient specific goal for the day: Dangle, stand, and ambulate in room with PT/unit staff within 4 hours of arrival to the unit Patient specific goal for the stay: Meet criteria for safe discharge Achieve goal for stay: By discharge Patient Progress: Pt remained in bed for rest d/t numbness/tingling on both legs as the spinal blockis still in effect, PT/nursing staff will attempt dangle and ambulate pt later when legs have feeling back. Neurovascular in tact. No calf tenderness noted in both lower extremities. Alert and orientedx4. Will continue participate in PT/OT tomorrow and work toward safe d/c home XIAO. linical Team - Elisabeth Benton RN - 05/31/2020 10:00 AM CSTReceived report in pt room from PACU nurse Savanah WARREN @ 1000. Pt has a RTKA with Dr. Andrade, [facility]. Upon arrival, Pt is A&O x4, VS stable, see Graphics. Denies pain, nausea, and SOB at this time, able to wiggle legs and toes but still feels numbness/tingling. IVF infusing as ordered, tubing changed, dressing CDI. Pt oriented to room, call light, IS, diet, activity, DVT prevention, and pain control. Encouraged pt to use call light with any needs. Patient resting comfortably in bed. Upon Transfer to , skin assessment completed with Savanah WARREN Behind ears: nild redness behind anjelica ears d/t mask wearing and Oxygen tubing Elbows: WNL Coccyx: WNL Any other areas of notable concern: N/A WOCN consulted: N/A Plan/Intervention manage moisture, assist pt to dangle and ambulate later when able, PT/OT following perative Note - Philipp Andrade MD - 05/31/2020 8:22 AM RAG PRODUCTION WORKER PREOPERATIVE DIAGNOSIS: Right knee degenerative arthritis POSTOPERATIVE DIAGNOSIS: Right knee degenerative arthritis PROCEDURE: Right total knee arthroplasty INDICATION: This 75 year old male has advanced right knee arthritis and was taken to the OR for knee replacement surgery. DESCRIPTION: The patient was taken to the operating room and after an adductor canal block and spinal anesthesia were obtained, placed supine on the operating table. The right lower extremity was then prepped and draped in a sterile surgical fashion. A time out was taken and the proper extremity was identified. The leg was then exsanguinated and the tourniquet inflated to 250 mm Hg. An anterior longitudinal incision was performed and dissection was carried down to the extensor mechanism where amedian parapatellar arthrotomy was performed. The patella was everted and the knee was placed in a flexed position. Evaluation of the joint revealed significant wear in the medial compartment. A drill hole was created in the distal femur. The femoral alignment joshua was place into the femoral canal and used to position the distal femoral cutting block. The block was pinned in place and the joshua wasremoved. The distal femoral cut was then performed. The distal femur was then sized to a 8 and thesize 8 cutting block was pinned to the distal femur. The anterior and posterior cuts were then perfo rmed. Next, the cruciate ligaments and menisci were excised from the knee and the proximal tibia was exposed. The tibial extramedullary alignment device was placed on the tibia. This was used to position the proximal tibial cutting block. The block was pinned in place and the proximal tibial cut was performed. Flexion and extension gaps were then evaluated using spacer blocks. These were found to be equal with good stability and alignment. The size 8 femoral cutting block was placed back on the femur and the remaining femoral cuts were performed. A size 8 femoral trial was impacted on the bone and this had a good fit. The size F tibial trial was placed on the tibial bony surface and this had a good fit. A 10 mm polyethylene trial was then placed into the knee and range of motion and stability were evaluated and found to be appropriate. The patella was then everted and the articular surface was resected using a saw. The patella was sized to a 35 and lug holes were drilled for that implant. A trial patellar button was then placed on the patella and patellar tracking was evaluated during flexion and extension of the knee. The patella tracked centrally. The trial components were then removed from the knee. The tibial base plate was pinned in position on the tibia and the keel punch was performed. Cement was mixed at the back table while the bony surfaces were washed and dried. The final size F tibia and size 8 femur were cemented and impacted. Excess cement was removed. The 10 mm polyethylene trial was placed into the knee and it was held in full extension while the patellar button was cemented and held in place with a clamp. Once the cement had hardened the trial polyethylene was removed and replaced with the final 10 mm polyethylene component. The knee was then reduced and irrigated with a large amount of sterile saline. The extensor mechanism was closed with interrupted #1 Vicryl suture. The skin was closed with 2.0 Vicryl suture and kaela. Sterile dressings were then applied. The patient was taken to the recovery room in stable condition. The skilled assistance of the KRISTOPHER Hussein was necessary for the successful completion of this case. He/She was essential for proper positioning, manipulation of instruments, proper exposure, manipulation of tissue and wound closure. Due to schedule rotations, a qualified resident was not available to assist me in this case. SURGEON: Raul Andrade MD ASST: Chloe Hussein, CARLO BLOOD LOSS: 100 ml DRAINS: None are Planning - Mari Zhao RN - 05/31/2020 6:24 AM CSTPt in preop; no questions/concerns at this time. Will continue to monitor. documented in this encounter Plan of Treatment Date Type Specialty Care Team Description 06/09/2020 Office Visit Chloe Luna PA [address] [place] [address] [phone] 07/04/2020 Office Visit Philipp Mehta MD [address] [place] [address] [phone] Name Type Priority Associated Diagnoses Date/Ti me TISSUE EXAM PATH Routine Arthritis of knee, right 04/2021 7:30 AM RAG PRODUCTION WORKER Name Type Priority Associated Diagnoses Order S chedule TISSUE EXAM PATH Routine Arthritis of knee, right Rel ease Upon Ordering for 1 Occurrences sta rting 05/31/2020 documented as of this encounter Implants Implanted Type Area Furniture Painter Device Shelf Model / Identifier Expiration Serial / Lot Date Cmnt Bone Cmnt-R 1x40 N [id number] - [id number] Tissue Right: FAVIAN 05/19/2024 [id number] / Implanted: Qty: 1 on 05/31/2020 by Philipp Lyon MD at [facility] Synthetic KNEE / [id number] Knee Psn Asf Mc [id number] E N [id number] Ea1 - [id number] Total Jt Knee Right: FAVIAN 07/17/2024 [id number] / Implanted: Qty: 1 on 05/31/2020 by Philipp Lyon MD at [facility] KNEE / [id number] Knee Tib Stem Psn 5d Rt Szf N [id number] Ea1 - [id number] Total Jt Knee Right: FAVIAN 01/29/2030 [id number] / Implanted: Qty: 1 on 05/31/2020 by Philipp Lyon MD at [facility] KNEE / [id number] Knee Psn Ptla All Pe Ve 35mm N [id number] Ea1 - [id number] Total Jt Knee Right: FAVIAN 01/18/2025 [id number] / Implanted: Qty: 1 on 05/31/2020 by Philipp Lyon MD at [facility] KNEE / [id number] Knee Fem Psn Cr Cmnt Std [id number] N [id number] Ea1 - [id number] Total Jt Knee Right: FAVIAN 02/05/2030 [id number] / Implanted: Qty: 1 on 05/31/2020 by Philipp Lyon MD at [facility] KNEE / [id number] documented as of this encounter Procedures Procedure Name Priority Date/Time Associated Comments Diagnosis COLLECT AND HOLD Routine 06/01/2020 5:16 Results for this GREEN TOP TUBE AM RAG PRODUCTION WORKER procedure are in the results section. HEMOGLOBIN Routine 06/01/2020 5:14 Results for this AM RAG PRODUCTION WORKER procedure are i n the results section. XRAY KNEE 1-2 VIEWS Routine 05/31/2020 9:05 Resu lts for this RT AM RAG PRODUCTION WORKER procedure are i n the results section. NERVE BLOCK Routine 05/31/2020 6:54 Results for this AM RAG PRODUCTION WORKER procedure are i n the results section. ARTHROPLASTY KNEE 05/31/2020 6:32 Arthritis of knee, AM RAG PRODUCTION WORKER right Special Needs *X* PTT Routine 05/31/2020 5:57 AM RAG PRODUCTION WORKER Resu lts for this procedure are in the results section . PROTIME/INR XIAO 05/31/2020 5:57 AM RAG PRODUCTION WORKER Resu lts for this procedure are in the results section . HEMOGLOBIN STAT 05/31/2020 5:57 AM RAG PRODUCTION WORKER Resu lts for this procedure are in the results section . documented in this encounter Results COLLECT AND HOLD GREEN TOP TUBE (06/01/2020 5:16 AM RAG PRODUCTION WORKER) Collect and Hold Comment: RECEIVED [facility] Specimen Blood - Blood specimen (specimen) Performing Organization Address City/[facility]/Zipcode Phone Number [facility] [address] [place] [address] HEMOGLOBIN (06/01/2020 5:14 AM RAG PRODUCTION WORKER) Pathologist [facility] Hemoglobin 13.7 13.5 - 17.5 g/dL [facility] Specimen Blood - Blood specimen (specimen) Performing Organization Address [facility]/Zipcode Phone Number [facility] [address] [place] [phone] XRAY KNEE 1-2V - RT (05/31/2020 9:05 AM RAG PRODUCTION WORKER) Specimen Narrative Performed At [facility] Patient Name: KARIME JIANG Date of : 1945 Procedure: XRAY KNEE 1-2 VIEWS RT Date of Service: 05/31/2020 -------- ADDENDUM #1 -------- Addendum: Lucent tract overlying the distal femoral me tadiaphysis most likely artifactual. Finalized by: Dorinda Rowland MD on 2020 4:05 PM RAG PRODUCTION WORKER -------- ORIGINAL REPORT -------- EXAM: XRAY KNEE 1-2 VIEWS RT INDICATION: TKA ADDITIONAL INDICATION: None. COMPARISON(S): Bilateral standing knees, 12/11/2019 FINDINGS: Total arthroplasty of the right knee. Hardwa re is stable in alignment and configuration without abnormal lucency a t cement hardware interface. Lucent tract overlying the distal femoral m etadiaphysis, of uncertain significance. IMPRESSION: 1. New baseline after arthroplasty proce dure. 2. Lucent tract overlying the distal femoral metadiaph ysis. Attention to this region if instability develops. Finalized by: Dorinda Rowland MD on 2020 10:05 AM [facility] Patient/Procedure Information: [facility] MRN/BERENICE: [id number] Order Number: [id number] Accession Number: [id number] Ordering Provider: CHLOE HUSSEIN Authorizing Provider: CHLOE HUSSEIN Procedure Note Interface, Radiantres - 05/31/2020 4:07 PM RAG PRODUCTION WORKER Patient Name: KARIME JIANG Date of : 1945 Procedure: XRAY KNEE 1-2 VIEWS RT Date of Service: 05/31/2020 -------- ADDENDUM #1 -------- Addendum: Lucent tract overlying the dis hank femoral metadiaphysis most likely artifactual. Finalized by: Dorinda Rowland MD on 2020 4:05 PM RAG PRODUCTION WORKER -------- ORIGINAL REPORT -------- EXAM: XRAY KNEE 1-2 VIEWS RT INDICATION: TKA ADDITIONAL INDICATION: None. COMPARISON(S): Bilateral standing knees, 12/11/2019 FINDINGS: Total arthroplasty of the righ t knee. Hardware is stable in alignment and configuration without abnormal lucency at cement hardware interface. Lucent tract overlying the distal femoral metadiaphysis, of uncertain significance. IMPRESSION: 1. New baseline after arthroplasty proce dure. 2. Lucent tract overlying the distal fem oral metadiaphysis. Attention to this region if instability develops. Finalized by: Dorinda Rowland MD on 2020 10:05 AM RAG PRODUCTION WORKER Patient/Procedure Information: [facility] MRN/BERENICE: [id number] Order Number: [id number] Accession Number: [id number] Ordering Provider: CHLOE HUSSEIN Authorizing Provider: CHLOE HUSSEIN Performing Organization Address City/State/Zipcode Phone Number [phone] NERVE BLOCK (05/31/2020 6:54 AM RAG PRODUCTION WORKER) Narrative Performed At Emma Clark MD 05/31/2020 6:57 AM NERVE BLOCK Date/Time: 05/31/2020 6:54 AM Performed by: Emma Clark MD Authorized by: Emma Clark MD Comments: NERVE BLOCK Date Performed: 05/31/2020 Performed by: Emma Clakr Start Time: 643 End Time: 651 Procedure: Adductor Canal Block Type: Single Shot Laterality: Right Indication: Post-Op Pain Relief per freeman rgeon request Risks and Benefits: Discussed the risks (including b ut not limited to, bleeding, infection, nerve damage, and intravascular i njections) benefits and alternatives to the procedure Consent: Expressed understanding of the procedure, r isks, benefits and alternatives and wished to proceed. Anesthesia Time Out: There was a time out called imm ediately prior to the procedure to confirm the correct patient, procedure an d laterality. All necessary equipment was available and fu nctioning. Monitoring: Continuous monitory of ECG, Pulse Ox, He art Rate and Blood Pressure throughout procedure,. Positioning: Supine Sedation and Analgesia: 1 mg Versed an d 50 mcg Fentanyl Pannus Retraction: Not Needed Draping: Draping not needed Disinfectant Used: Skin was sterily pr epped with Chlorhexadine and allowed to dry. Skin Infiltration: Lidocaine 2% Equipment used Ultrasound Regional Needle: Stimuplex Needle Gauge: 22g Needle Length: 3 1/8" Technique: Anatomical Landmarks identified, Tissues were visualized with ultrasound, Local given in 5ml increment s with negative aspiration in-between. and Strict sterile technique was maintained throughout. Motor Response: none Lowest Stimulator Current: none mA Catheter: None Dressing: No Dressing Events: None Vital Signs: Please refer to Pre-Procedu re Record Comments: Ultrasound Image recorded and Patient tole rated procedure well Medications: Base Medication: Ropivicaine 0.5% 27 ml Additives: none HEMOGLOBIN (05/31/2020 5:57 AM RAG PRODUCTION WORKER) Pathologist [facility] Hemoglobin 15.7 13.5 - 17.5 g/dL [facility] Specimen Blood - Blood specimen (specimen) Performing Organization Address [facility] [place] Phone Number [facility] [address] [place], [place] [phone] PTT (05/31/2020 5:57 AM RAG PRODUCTION WORKER) [facility] APTT 31 24 - 35 secs [facility] Specimen Blood - Blood specimen (specimen) Performing Organization Address [facility] [place] Phone Number [facility] [address] [place], [place] [phone] PROTIME/INR (05/31/2020 5:57 AM RAG PRODUCTION WORKER) [facility] Protime 13.1 12.0 - 14.5 secs [facility] INR 1.0 (L) 2.0 - 3.5 [facility] Specimen Blood - Blood specimen (specimen) Narrative Performed At Normal INR reference range (patients not on oral [facility] anticoagulants) 0.9-1.1. INR Standard Intensity = (2.0 - 3.0) INR Higher Intensity = (2.5 - 3.5) Performing Organization Address [facility] [place] Phone Number [facility] [address] [place], [place] [phone] documented in this encounter Visit Diagnoses Diagnosis Status post total right knee replacement - Primary Arthritis of knee, right Unspecified arthropathy, lower leg documented in this encounter Discharge Diagnoses Not on filedocumented in this encounter Administered Medications Medication Order MAR Action Action Date Dose Rate Site aspirin (ECOTRIN) enteric coated Given 06/01/2020 8:20 AM RAG PRODUCTION WORKER 3 25 mg tablet 325 mg 325 mg, Oral, Two times a day, First dose on Sat05/31/20 at 2100, Until Discontinued, Post - Op, Tablet should be swallowed whole and not be divided, crushed or chewed., Given 05/31/2020 8:35 PM RAG [employer]ODUCTION WORKER 325 mg bisacodyl (DULCOLAX) enteric coated tablet 5 Given 8:20 AM RAG PRODUCTION WORKER 5 mg mg 5 mg, Oral, Two times a day prn, Starting Sat05/31/20 at 0946, Until Discontinued, constipation, Post - Op, SECOND choice or per patient preference, brimonidine-timolol (COMBIGAN) 0.2-0.5 % Given 06/01/2020 8:21 AM RAG PRODUCTION WORKER 1 drop ophthalmic solution 1 drop 1 drop, Both eyes, DAILY, First dose on Sat06/01/20 at 0900, Until Discontinued, 5 mL, If more than one topical ophthalmic product is to be used, the different products should be instilled at least 5 minutes apart. Patient s own medication has been identified by Pharmacist and approved for hospital use by hospital policy., calcium carbonate (TUMS) chewable tablet 500 Given 4:12 AM RAG PRODUCTION WORKER 500 mg mg 500 mg, Oral, Four times a day prn, Starting Sat06/01/20 at 0357, Until Discontinued, indigestion docusate sodium (COLACE) capsule 100 mg Given 06/01/2020 8:20 AM RAG PRODUCTION WORKER 100 mg 100 mg, Oral, Two times a day, First dose on Sat05/31/20 at 0950, Until Discontinued, Post - Op, Swallow cap whole. Should not be crushed or chewed, Given 05/31/2020 8:35 PM RAG [employer]ODUCTION WORKER 100 mg Given 05/31/2020 11:15 AM RAG PRODUCTION WORKER 100 mg HYDROcodone-acetaminophen (NORCO) 5-325 mg Given 06/01 11:38 AM RAG PRODUCTION WORKER 1 tablet tablet 1 tablet 1 tablet, Oral, Every six hours, First dose on Sat05/31/20 at 1200, Until Discontinued, Post - Op, Total dose of acetaminophen from all acetaminophen containing products should not exceed 4 grams (4000 mg) per day., Given 06/01/2020 6:00 AM RAG PRODUCTION WORKER 1 tablet Given 06/01/2020 12:49 AM RAG PRODUCTION WORKER 1 tablet latanoprost (XALATAN) 0.005 % ophthalmic Given 05/31/2020 8:35 PM RAG PRODUCTION WORKER 1 drop solution 1 drop 1 drop, Both eyes, Bedtime, First dose on Sat05/31/20 at 2100, Until Discontinued, 2.5 mL, Patient s own medication has been identified by Pharmacist and approved for hospital use by hospital policy., oxyCODONE (OXY-IR) tablet 5-10 mg Given 06/01/2020 8:20 AM RAG PRODUCTION WORKER 5 mg 5-10 mg, Oral, Every four hours prn, Starting Sat05/31/20 at 0946, Until Discontinued, moderate pain, severe pain, Post - Op, For patients with moderate pain, pain rating of 4-6, give oxyCODONE 5 mg PO every 4 hours PRN. For patients with severe pain, pain rating of 7-10, give oxyCODONE 10 mg PO every 4 hours PRN., Given 05/31/2020 2:10 PM RAG PRODUCTION WORKER 5 mg sodium chloride 0.9% flush (adult) 10 mL Given 06/01/2020 8:22 AM RAG PRODUCTION WORKER 10 mL 10 mL, IV, Two times a day and prn, First dose on Sat05/31/20 at 0950, Until Discontinued, 10 mL, Post - Op, Flush IV line as scheduled and as often as necessary before and after meds., Given 05/31/2020 10:35 AM RAG PRODUCTION WORKER 10 mL sodium chloride 0.9% IV solution New Bag/Tubing 05/31/2020 10:35 AM RAG PRODUCTION WORKER 75 mL/hr IV, at 75 mL/hr, Continuous, Starting Sat05/31/20 at 0950, Until Discontinued, 1,000 mL, Post - Op Medication Order MAR Action Action Date Dose Rate Site acetaminophen (TYLENOL) tablet Given 05/31/2020 6:13 AM RAG PRODUCTION WORKER 1,0 00 mg 1,000 mg 1,000 mg, Oral, Pre-op, 1 dose, Sat05/31/20 at 0530, Pre - Op, Adult patients: Total dose of acetaminophen from all acetaminophen containing products should not exceed 4 grams (4000 mg) per day. Pediatric Patients 0 - 3 months: Maximum of 60 mg/kg/24 hours of acetaminophen. Pediatric Patients older than 3 months: Maximum of 75 mg/kg/24 hours of acetaminophen (Never exceeding 4 grams/day). , ceFAZolin (ANCEF) 2000 mg/20 mL sterile Given 05/31/2020 10:44 P M RAG PRODUCTION WORKER 2,000 mg water IV syringe 2,000 mg, IV, Every eight hours, 2 doses, First dose on Sat05/31/20 at 1500, Last dose on Sat05/31/20 at 2300, 20 mL, PACU - Continue Post-Op, Administer as IV push over 4 minutes., Given 05/31/2020 2:11 PM RAG PRODUCTION WORKER 2,000 mg fentaNYL 100 mcg/2 mL preservative free Given 05/31/2020 6:44 A M RAG [employer]ODUCTION WORKER 50 mcg injection solution 25-100 mcg 25-100 mcg, IV, Every five minutes prn, 3 doses, Starting Sat05/31/20 at 0559, Until Sat05/31/20 at 0827, other (Specify), analgesia during procedure, 2 mL, Pre - Op, Fentanyl 25-100 mcg q 5 min prn over the next 2 hours to a MAX of 300 mcg as needed for analgesia during procedure, gabapentin (NEURONTIN) capsule 600 mg Given 05/31/2020 6:13 AM RAG PRODUCTION WORKER 600 mg 600 mg, Oral, Pre-op, 1 dose, Sat05/31/20 at 0530, Pre - Op, 1 dose prior to surgery, ketorolac (TORADOL) intravenous injection 15 Given 04/2021 6:13 AM RAG PRODUCTION WORKER 15 mg mg 15 mg, IV, Pre-op, 1 dose, Sat05/31/20 at 0630, 1 mL, Pre - Op, 1 dose prior to surgery If preference is to further dilute for IV administration: First draw up patient-specific dose, then dilute to 10 mL with 0.9% sodium chloride., ketorolac (TORADOL) intravenous injection 15 Given 12:49 AM RAG PRODUCTION WORKER 15 mg mg 15 mg, IV, Every six hours, 3 doses, First dose on Sat05/31/20 at 1200, Last dose on Sat06/01/20 at 0000, 1 mL, Post - Op, Max prn dose = 60 mg/day If preference is to further dilute for IV administration: First draw up patient-specific dose, then dilute to 10 mL with 0.9% sodium chloride., Given 05/31/2020 5:52 PM RAG PRODUCTION WORKER 15 mg Given 05/31/2020 11:15 AM RAG PRODUCTION WORKER 15 mg lactated ringers IV solution New Bag 05/31/2020 7:31 AM RAG PRODUCTION WORKER IV, at 25 mL/hr, Continuous, Starting Sat05/31/20 at 0635, Until Sat05/31/20 at 0827, 1,000 mL, Pre - Op Now New Bag 05/31/2020 6:00 AM RAG PRODUCTION WORKER 25 mL/hr lactated ringers IV solution Already Infusing 05/31/2020 8:30 AM RAG PRODUCTION WORKER 125 mL/hr IV, at 125 mL/hr, Continuous, Starting Sat05/31/20 at 0840, Until Sat05/31/20 at 0952, 1,000 mL, PACU, TKO current fluids if patient is going to Day Unit / ARU and tolerating PO fluids without nausea., midazolam (VERSED) injection solution 0.25-2 Given 6:44 AM RAG PRODUCTION WORKER 1 mg mg 0.25-2 mg, IV, Every five minutes prn, 6 doses, Starting Sat05/31/20 at 0559, Until Sat05/31/20 at 0827, sedation, 2 mL, Pre - Op, Midazolam 0.25-2 mg q 5 min prn to a MAX of 5 mg as needed for sedation during procedure., ropivacaine 0.5 % 125 mg Peripheral Nerve Block Given 05/31/2020 6:44 AM RAG PRODUCTION WORKER Injection Syringe Perineural, Now, 1 dose, Sat05/31/20 at 0600, 25 mL, Pre - Op, Inject 5-10 mL per administration as directed by Anesthesia with a total maximum of 40 mL, traMADol (ULTRAM) tablet 100 mg Given 05/31/2020 6:13 AM RAG PRODUCTION WORKER 100 mg 100 mg, Oral, Pre-op, 1 dose, Sat05/31/20 at 0530, Pre - Op, Recommended maximum daily dose of tramadol = 400 mg. Recommended maximum daily dose in patients 75 years or older = 300 mg., documented in this encounter
== END 2020-06-10 10:45 | disposition other institution (70) ==
LOC: KA.ED 09:01
DX: M79.661 Pain in right lower leg (principal); Z96.651 Presence of right artificial knee joint; Z79.82 Long term (current) use of aspirin
CPT/HCPCS: 73560-RT; 99283